=== PATIENT | female | born 1965 | race Caucasian/White ===

== ENCOUNTER 2017-09-17 08:35 | Observation (INO) ==
[2017-09-17] MEDS ORDERED: Isovue-370 500 ML INFUS..BTL IV ONE (08:42)
[2017-09-17] MEDS ORDERED: Ketorolac 30 MG/ML VIAL IVP ONE (08:42)
[2017-09-17] MEDS ORDERED: 0.9 % Sodium Chloride 1,000 ML IVC ONE (08:42)
[2017-09-17] MEDS ORDERED: Ondansetron 4 MG/2 ML VIAL IVP ONE (08:45)
[2017-09-17 08:59] LABS: Basophils # 0.1 K/mcL (0.0-0.2); Basophils % 0.5 %; Eosinophils # 0.3 K/mcL (0.0-0.6); Eosinophils % 3.1 %; Hematocrit 40.9 % (35.3-44.9); Hemoglobin 13.8 g/dL (11.5-15.4); Immature Granulocytes % 0.5 % (0-4); Lymphocytes # 1.7 K/mcL (0.6-4.6); Mean Corpuscular HGB Conc 33.7 g/dL (31.6-35.5); Mean Corpuscular Hemoglobin 31.2 pg (28.0-33.3); Mean Corpuscular Volume 92.3 fL (83.0-100.0); Mean Platelet Volume 8.9 fL (9.4-12.4); Monocytes # 0.6 K/mcL (0.0-1.3); Monocytes % 5.4 %; Neutrophils # 7.5 K/mcL (1.6-8.9); Platelet Count 200 K/mcL (140-400); Red Blood Count 4.43 M/mcL (3.82-4.97); Red Cell Distribution Width 12.1 % (11.5-14.5); Segmented Neutrophils % 73.5 %
[2017-09-17 09:06] LABS: Prothrombin Time 10.8 Seconds (9.4-12.1)
[2017-09-17 09:09] LABS: Activated Partial Thrombo Time 27.5 Seconds (26.0-36.0)
[2017-09-17 09:20] LABS: Troponin I < 0.03 ng/mL (< 0.04)
[2017-09-17 09:21] LABS: Alanine Aminotransferase 17 Units/L (7-52); Albumin 4.1 g/dL (3.5-5.7); Albumin/Globulin Ratio 1.6 (1.1-2.2); Alkaline Phosphatase 89 Units/L (34-104); Amylase 20 Units/L (29-103); Aspartate Amino Transferase 16 Units/L (13-39); BUN/Creatinine Ratio 26 (6-26); Bilirubin,Direct 0.2 mg/dL (0.0-0.2); Bilirubin,Indirect 0.5 mg/dL (0.0-1.2); Bilirubin,Total 0.7 mg/dL (0.3-1.0); Blood Urea Nitrogen 19 mg/dL (6-20); Calcium 9.5 mg/dL (8.6-10.3); Carbon Dioxide 27 mEq/L (23-29); Chloride 108 mEq/L (98-107); Globulin 2.5 g/dL (2.4-3.5); Glucose 166 mg/dL (70-105); Lipase 15 Units/L (11-82); Osmolality,Calculated 296 (280-300); Potassium 3.8 mEq/L (3.5-5.1); Sodium 140 mEq/L (136-145); Total Protein 6.6 g/dL (6.4-8.9); eGFR For African Americans > 60 (> 60); eGFR For Non-African Americans > 60 (> 60)
[2017-09-17 09:26] LABS: Bilirubin,Urine Negative (Negative); Blood,Urine Large (Negative); Clarity,Urine Cloudy (Clear); Glucose,Urine (UA) Normal (Normal); Ketones,Urine Negative (Negative); Leukocyte Esterase,Urine Negative (Negative); Nitrite,Urine Negative (Negative); PH,Urine 6.5 pH Units (5.0-8.0); Protein,Urine 100 mg/dL (Neg-Trace); Specific Gravity,Urine 1.027 (1.010-1.025); Urobilinogen,Urine Normal (Normal)
[2017-09-17 09:27] LABS: Color,Urine Red (Yellow)
--- NOTE | 2017-09-17 09:46 | Emergency Department Note ---
Disposition Clinical Impression: Kidney stone on left side Disposition: Admitted As Inpatient Condition: Good Referrals: Mayito Peters MD [Primary Care Provider] - Forms: ED Satisfaction Letter, Work/School Release Time of Disposition: 11:23 General Adult HPI - General Chief complaint: ED Abdominal Pain Stated complaint: ABD,Vomiting,Vag Bleed Time Seen by Provider: 09/17/17 08:41 Source: patient Limitations: no limitations Nursing Notes Reviewed: Yes Vital Signs Reviewed: Yes - History of Present Illness HPI Narrative: 52 yaer old female presents to the ED with complaints of abdomnila pain simliar to her kidney stones in the past. Ptient states that she follows with Dr. Solis and that she has had a kidney stone about 1 month ago and this mornig when she woek up she had excrusiting left flank pain that radiates to the left groin and is having gloria hematuria. PAtinet sates that she also has been vomitting but without fevers. Patient states that she had a CT scan about 1 month ago and was told that there was not anymore stones in ther kidneys. She called urology and states that she was instructed to come to the ED Pain Scale: 10 - Related Data Home Medications Medication Instructions Recorded Confirmed ALPRAZolam [Xanax 0.5 MG Tablet] 0.5 mg PO BID PRN 04/25/16 04/25/16 Atorvastatin Calcium [Lipitor] 20 mg PO HS 04/25/16 04/25/16 Cholecalciferol (D-3) [Vitamin D] 5,000 unit PO DAILY 04/25/16 04/25/16 D-Methorphan/PE/Acetaminophen 1 each PO Q4H PRN 04/25/16 04/25/16 [Tylenol Cold Max Day Caplet] Levothyroxine Sodium [Levoxyl] 75 mcg PO DAILY 04/25/16 04/25/16 Mirabegron [Myrbetriq] 50 mg PO DAILY 04/25/16 04/25/16 Omeprazole [PriLOSEC] 40 mg PO HS 04/25/16 04/25/16 Pramipexole [Mirapex] 0.25 mg PO HS 04/25/16 04/25/16 Previous Rx's Medication Instructions Recorded Ondansetron [Zofran] 8 mg PO Q8HR #10 tablet 04/25/16 Oxycodone HCl/Acetaminophen 1 each PO Q4-6H PRN #42 tablet 04/25/16 [Percocet 5-325 mg Tablet] Allergies Allergy/AdvReac Type Severity Reaction Status Date / Time Penicillins [PCN] Allergy Hives Verified 04/25/16 11:28 prednisone Allergy See Verified 04/25/16 11:28 Comments Constitutional: Denies: fever, chills, weakness, weight change Eyes: Denies: eye pain, eye discharge, vision change ENT ED: Denies: ear pain, throat pain, dental pain, hearing loss, epistaxis, congestion, dysphagia Cardiovascular: Denies: chest pain, palpitations, dyspnea on exertion, edema, syncope Respiratory: Denies: cough, dyspnea, wheezes, hemoptysis, stridor Gastrointestinal: Reports: abdominal pain, nausea, vomiting. Denies: diarrhea, constipation, hematemesis, melena, hematochezia Genitourinary: Reports: hematuria. Denies: dysuria, frequency, discharge Musculoskeletal: Denies: back pain, neck pain, arthralgia, myalgia Integumentary: Denies: rash, abrasion, lesions Neurological: Denies: headache, weakness, numbness, paresthesias, confusion, abnormal gait, vertigo Psychiatric: Denies: anxiety, depression, suicidal thoughts, homicidal thoughts , auditory hallucinations, visual hallucinations Endocrine: Denies: fatigue Hematological/Lymphatic: Denies: easy bleeding, easy bruising Allergic/Immunologic: Denies: facial swelling, urticaria Past Medical History - Past Medical History Medical history: Reports: GERD, kidney stones, liver disease Surgical history: Reports: cholecystectomy, herniorrhaphy Psychiatric history: Reports: no psych history - Social History Smoking Status: Current every day smoker Smokeless Tobacco Status: No Alcohol use: Reports: occasionally Drug use: Reports: none Physical Exam - General Limitations: no limitations General appearance: alert, in no apparent distress - Head Head exam: atraumatic, normocephalic, normal inspection - Eye Eye exam: Present: normal appearance, PERRL, EOMI - Expanded Eye Exam Pupils: Bilateral: reactive - ENT ENT exam: normal exam, normal oropharynx, mucous membranes moist - Expanded ENT Exam External ear exam: Present: normal external inspection Mouth exam: Present: normal external inspection Teeth exam: Present: normal inspection Throat exam: Present: normal inspection - Neck Neck exam: Present: normal inspection, full ROM, trachea midline - Chest Chest inspection: Present: normal inspection, symmetric chest wall rise - Respiratory Respiratory exam: Present: normal lung sounds bilaterally - Cardiovascular Cardiovascular exam: Present: regular rate, normal rhythm, normal heart sounds - Abdominal Exam Abdominal exam: Present: soft, tenderness, normal bowel sounds. Absent: Non- Tender, distention, guarding, rebound, rigidity, psoas sign, obturator sign, heel tap sign, Scanlon's sign, Rovsing's sign, tenderness at McBurney's Point Abdominal tenderness: Present: LUQ, LLQ - Extremities Exam Extremities exam: Present: normal inspection, full ROM. Absent: tenderness, pedal edema - Expanded Upper Extremity Exam Shoulder exam: Present: normal inspection, full ROM Arm exam: Present: normal inspection, full ROM Elbow exam: Present: normal inspection, full ROM Forearm/Wrist exam: Present: normal inspection, full ROM Hand exam: Present: normal inspection, full ROM Vascular exam: Normal: capillary refill, radial pulse - Expanded Lower Extremity Exam Hip/Pelvis exam: Present: normal inspection, full ROM Upper leg exam: Present: normal inspection, full ROM Knee exam: Present: normal inspection, full ROM Lower leg exam: Present: normal inspection, full ROM Ankle exam: Present: normal inspection, full ROM Foot/toe exam: Present: normal inspection, full ROM Neurovascular/Tendon exam: Absent: motor deficit, sensory deficit, tendon deficit - Back Exam Back exam: Present: normal inspection, full ROM, CVA tenderness (L) - Neurological Exam Neurological exam: Present: alert, oriented X3 - Expanded Neurological Exam Patient oriented to: Present: person, place, time Coma Scale Eye Opening: Spontaneous Coma Scale Motor Response: Obeys Commands Coma Scale Verbal Response: Oriented Coma Scale Total: 15 - Psychiatric Psychiatric exam: Present: normal affect, normal mood - Skin Skin exam: Present: warm, dry, intact, normal color Course Course Narrative: will do an abdominla pain workup and CT scan with IV meds for relief. - Consultations Consultation #1: discussed case with Dr. Amor and we will accept josiah to his service. Time: 11:23 Vital Signs Temperature 97.3 F L 09/17/17 08:36 Pulse Rate 75 09/17/17 08:36 Respiratory Rate 18 09/17/17 08:36 Blood Pressure 122/83 09/17/17 08:36 O2 Sat by Pulse Oximetry 98 09/17/17 08:36 Temperature 97.3 F L 09/17/17 08:54 Pulse Rate 88 09/17/17 10:02 Respiratory Rate 18 09/17/17 10:02 Blood Pressure 140/76 09/17/17 10:02 O2 Sat by Pulse Oximetry 98 09/17/17 10:02 Oxygen Delivery Oxygen Delivery Room Air Medical Decision Making - Medical Records Medical records reviewed: Yes I reviewed the patient's medical records. - Lab Data Lab results reviewed: Yes I reviewed the patient's lab results. Result diagrams: 09/17/17 08:50 09/17/17 08:50 Lab Results 09/17/17 09/17/17 09/17/17 Range/Units 08:50 08:50 08:50 WBC 10.2 (4.3-11.1) K/mcL RBC 4.43 (3.82-4.97) M/mcL Hgb 13.8 (11.5-15.4) g/dL Hct 40.9 (35.3-44.9) % MCV 92.3 (83.0-100.0) fL MCH 31.2 (28.0-33.3) pg MCHC 33.7 (31.6-35.5) g/dL RDW 12.1 (11.5-14.5) % Plt Count 200 (140-400) K/mcL MPV 8.9 L (9.4-12.4) fL Immature Gran % 0.5 (0-4) % Seg Neutrophils % 73.5 % Lymphocytes % 17.0 % Monocytes % 5.4 % Eosinophils % 3.1 % Basophils % 0.5 % Neutrophils # 7.5 (1.6-8.9) K/mcL Lymphocytes # 1.7 (0.6-4.6) K/mcL Monocytes # 0.6 (0.0-1.3) K/mcL Eosinophils # 0.3 (0.0-0.6) K/mcL Basophils # 0.1 (0.0-0.2) K/mcL PT 10.8 (9.4-12.1) Seconds INR 1.0 APTT 27.5 (26.0-36.0) Seconds Sodium 140 (136-145) mEq/L Potassium 3.8 (3.5-5.1) mEq/L Chloride 108 H (98-107) mEq/L Carbon Dioxide 27 (23-29) mEq/L BUN 19 (6-20) mg/dL Creatinine 0.73 (0.60-1.20) mg/dL Est GFR ( Amer) > 60 (> 60) Est GFR (Non-Af Amer) > 60 (> 60) BUN/Creatinine Ratio 26 (6-26) Glucose 166 H (70-105) mg/dL Calculated Osmolality 296 (280-300) Lactic Acid (0.5-2.2) mmol/L Calcium 9.5 (8.6-10.3) mg/dL Total Bilirubin 0.7 (0.3-1.0) mg/dL Direct Bilirubin 0.2 (0.0-0.2) mg/dL Indirect Bilirubin 0.5 (0.0-1.2) mg/dL AST 16 (13-39) Units/L ALT 17 (7-52) Units/L Alkaline Phosphatase 89 (34-104) Units/L Troponin I < 0.03 (< 0.04) ng/mL Serum Total Protein 6.6 (6.4-8.9) g/dL Albumin 4.1 (3.5-5.7) g/dL Globulin 2.5 (2.4-3.5) g/dL Albumin/Globulin Ratio 1.6 (1.1-2.2) Amylase 20 L (29-103) Units/L Lipase 15 (11-82) Units/L Ur Specimen Adequacy Urine Color (Yellow) Urine Clarity (Clear) Urine pH (5.0-8.0) pH Units Ur Specific [place] (1.010-1.025) Urine Protein (Neg-Trace) mg/dL Urine Glucose (UA) (Normal) mg/dL Urine Ketones (Negative) mg/dL Urine Blood (Negative) Urine Nitrite (Negative) Urine Bilirubin (Negative) Urine Urobilinogen (Normal) mg/dL Ur Leukocyte Esterase (Negative) Ur Culture Indicated? (NO) 09/17/17 09/17/17 Range/Units 08:50 08:59 WBC (4.3-11.1) K/mcL RBC (3.82-4.97) M/mcL Hgb (11.5-15.4) g/dL Hct (35.3-44.9) % MCV (83.0-100.0) fL MCH (28.0-33.3) pg MCHC (31.6-35.5) g/dL RDW (11.5-14.5) % Plt Count (140-400) K/mcL MPV (9.4-12.4) fL Immature Gran % (0-4) % Seg Neutrophils % % Lymphocytes % % Monocytes % % Eosinophils % % Basophils % % Neutrophils # (1.6-8.9) K/mcL Lymphocytes # (0.6-4.6) K/mcL Monocytes # (0.0-1.3) K/mcL Eosinophils # (0.0-0.6) K/mcL Basophils # (0.0-0.2) K/mcL PT (9.4-12.1) Seconds INR APTT (26.0-36.0) Seconds Sodium (136-145) mEq/L Potassium (3.5-5.1) mEq/L Chloride (98-107) mEq/L Carbon Dioxide (23-29) mEq/L BUN (6-20) mg/dL Creatinine (0.60-1.20) mg/dL Est GFR ( Amer) (> 60) Est GFR (Non-Af Amer) (> 60) BUN/Creatinine Ratio (6-26) Glucose (70-105) mg/dL Calculated Osmolality (280-300) Lactic Acid 1.1 (0.5-2.2) mmol/L Calcium (8.6-10.3) mg/dL Total Bilirubin (0.3-1.0) mg/dL Direct Bilirubin (0.0-0.2) mg/dL Indirect Bilirubin (0.0-1.2) mg/dL AST (13-39) Units/L ALT (7-52) Units/L Alkaline Phosphatase (34-104) Units/L Troponin I (< 0.04) ng/mL Serum Total Protein (6.4-8.9) g/dL Albumin (3.5-5.7) g/dL Globulin (2.4-3.5) g/dL Albumin/Globulin Ratio (1.1-2.2) Amylase (29-103) Units/L Lipase (11-82) Units/L Ur Specimen Adequacy See below A Urine Color Red A (Yellow) Urine Clarity Cloudy A (Clear) Urine pH 6.5 (5.0-8.0) pH Units Ur Specific [place] 1.027 H (1.010-1.025) Urine Protein 100 H (Neg-Trace) mg/dL Urine Glucose (UA) Normal (Normal) mg/dL Urine Ketones Negative (Negative) mg/dL Urine Blood Large H (Negative) Urine Nitrite Negative (Negative) Urine Bilirubin Negative (Negative) Urine Urobilinogen Normal (Normal) mg/dL Ur Leukocyte Esterase Negative (Negative) Ur Culture Indicated? NO (NO) - Radiology Data Radiology results reviewed: Yes I reviewed the patient's radiology results. - EKG Data EKG #1 EKG attestation: Yes I reviewed and interpreted this EKG. EKG results narrative: NSR with rate of 71. NO STEMI. normla intervals. no old ekg. 0902
[2017-09-17] MEDS ORDERED: OXYCODONE Oral CONC 10 MG/0.5 ML ORAL.SYG SL PRN ×2 (12:27→19:06)
[2017-09-17] MEDS ORDERED: *HR* HYDROcodone/Acet 5/325 mg TABLET PO PRN ×2 (12:27→19:06)
[2017-09-17] MEDS ORDERED: Ketorolac 15 MG/ML VIAL IVP PRN ×2 (12:27→19:06)
[2017-09-17] MEDS ORDERED: Naloxone 0.4 MG/ML INJ IVP PRN ×2 (12:27→19:06)
[2017-09-17] MEDS ORDERED: 0.9 % Sodium Chloride 1,000 ML IVC SCH ×2 (12:30→19:06)
--- NOTE | 2017-09-17 12:32 | Urology - Consult Note ---
<Beatris Jefferson N - Last Filed: 09/17/17 12:30> Date of Encounter: 09/17/17 Time of Encounter: 11:50 - Assessment and Plan (1) Kidney stone on left side Current Visit: Yes Status: Acute Urology CN:HPI Consult date: 09/17/17 History of present illness: Patient reports to ED with left flank pain and gross hematuria. Patient has recurrent history of nephrolithiasis and has been treated with basket retrieval x [address] Solis. Patient denies fever, dysuria, chest pain, dyspnea or calf pain. Past Med Surg Social Fam HX - Past Medical History Medical history: GERD, kidney stones, liver disease Additional medical history: Graves disease, Psychiatric history: no psych history - Past Surgical History Surgical History: cholecystectomy, herniorrhaphy Additional surgical history: tubal, kidney stones - Social History Smoking Status: Current every day smoker Smokeless Tobacco Status: No Alcohol use: occasionally Drug use: none Medications and Allergies ALPRAZolam [Xanax 0.5 MG Tablet] 0.5 mg PO BID PRN 04/25/16 [History] Atorvastatin Calcium [Lipitor] 20 mg PO HS 04/25/16 [History] Cholecalciferol (D-3) [Vitamin D] 5,000 unit PO DAILY 04/25/16 [History] Mirabegron [Myrbetriq] 50 mg PO DAILY 04/25/16 [History] Omeprazole [PriLOSEC] 40 mg PO HS 04/25/16 [History] Pramipexole [Mirapex] 0.25 mg PO HS 04/25/16 [History] Levothyroxine Sodium [Levoxyl] 100 mcg PO QAM 09/17/17 [History] Meloxicam [Meloxicam] 15 mg PO DAILY 09/17/17 [History] 3 Allergy/AdvReac Type Severity Reaction Status Date / Time Penicillins [PCN] Allergy Hives Verified 09/17/17 11:58 prednisone Allergy See Verified 09/17/17 11:58 Comments Review of Systems - Constitutional as per HPI - Cardiovascular as per HPI, no chest pain, no dyspnea, no leg edema - Respiratory as per HPI, no dyspnea - Gastrointestinal nausea, no abdominal pain, no change in bowel habits, no vomiting - Genitourinary Genitourinary: flank pain, pelvic pain, urinary frequency, urinary hesitancy, urinary urgency, no abnormal vaginal bleeding, no change in urinary stream, no difficulty urinating, no dysuria, no genital lesions, no urinary incontinence Menstruation: post hysterectomy - Musculoskeletal back pain, no muscle weakness - Integumentary no lesions, no rash - Neurological no confusion, no syncope Exam Initial Vital Signs Temp Pulse Resp BP Pulse Ox 97.3 F L 75 18 122/83 98 09/17/17 08:36 09/17/17 08:36 09/17/17 08:36 09/17/17 08:36 09/17/17 08:36 - General physical appearance Present: well developed, no distress, no pain - Eyes Present: PERRL, normal ocular movement - Neck Present: no masses, trachea midline - Respiratory Present: normal respiratory effort - Abdomen Abdomen: Present: soft, non tender. Absent: guarding, distended - Integumentary Present: no rash, no growths, no abnormal pigmentation (+Left CVAT) - Neurologic Present: normal coordination. Absent: disoriented, confused Urology Results - Labs 09/17/17 08:50 09/17/17 08:50 Abnormal lab results MPV 8.9 fL (9.4-12.4) L 09/17/17 08:50 Chloride 108 mEq/L (98-107) H 09/17/17 08:50 Glucose 166 mg/dL (70-105) H 09/17/17 08:50 Amylase 20 Units/L (29-103) L 09/17/17 08:50 Ur Specimen Adequacy See below A 09/17/17 08:59 Urine Color Red (Yellow) A 09/17/17 08:59 Urine Clarity Cloudy (Clear) A 09/17/17 08:59 Ur Specific [place] 1.027 (1.010-1.025) H 09/17/17 08:59 Urine Protein 100 mg/dL (Neg-Trace) H 09/17/17 08:59 Urine Blood Large (Negative) H 09/17/17 08:59 All other labs normal. - Imaging CT scan - abdomen: report reviewed, image reviewed CT scan - pelvis: report reviewed, image reviewed (Reviewed with Dr. Amor) Consult Discharge Plan - Plan Additional Instructions: Discussed CT findings with patient and her . Discussed surgical intervention options. Patient agrees to proceed with cystoscopy, retrograde pyelogram, and ureteral stent placement (left). Patient verbalizes surgical risks and benefits. Consent signed. Dr. Amor present and confirmed plan. Referrals: Mayito Peters MD [Primary Care Provider] - Noah Amor MD [Partnered Physician] - <Noah Amor - Last Filed: 09/17/17 12:39> Date of Encounter: 09/17/17 - Assessment and Plan (1) Ureteral calculi Current Visit: Yes Status: Acute Assessment and plan: plan to proceed with attempts at ureteroscopic stone extraction today. She has a history of ureteral injury in the past. She understands that if I am unable to advance the ureteroscope to the stone without resistance I will likely place a stent and remove the stone in a staged fashion. I do not want to place the patient at increased risk for ureteral perforation or avulsion. We discussed the risks of the procedure which includes injury to her urinary tract, infection , stent discomfort, reaction to contrast. We also discussed attempted trial of passage. She wishes to proceed with intervention today. Exam Initial Vital Signs Temp Pulse Resp BP Pulse Ox 97.3 F L 75 18 122/83 98 09/17/17 08:36 09/17/17 08:36 09/17/17 08:36 09/17/17 08:36 09/17/17 08:36 Urology Results - Labs 09/17/17 08:50 09/17/17 08:50 Abnormal lab results MPV 8.9 fL (9.4-12.4) L 09/17/17 08:50 Chloride 108 mEq/L (98-107) H 09/17/17 08:50 Glucose 166 mg/dL (70-105) H 09/17/17 08:50 Amylase 20 Units/L (29-103) L 09/17/17 08:50 Ur Specimen Adequacy See below A 09/17/17 08:59 Urine Color Red (Yellow) A 09/17/17 08:59 Urine Clarity Cloudy (Clear) A 09/17/17 08:59 Ur Specific [place] 1.027 (1.010-1.025) H 09/17/17 08:59 Urine Protein 100 mg/dL (Neg-Trace) H 09/17/17 08:59 Urine Blood Large (Negative) H 09/17/17 08:59 All other labs normal.
--- NOTE | 2017-09-17 14:56 | Electrocardiograph Report ---
[email or web address] Test Date: 2017-09-17 Pat Name: Beata Oliveira Department: 103 Room: 3A46 Gender: F [facility] Director: : [id number] Requested By: Raquel Marroquin Order Number: [id number] Reading MD: Casey Mahmood Measurements Intervals [place] Rate: 71 P: 25 TX: 140 QRS: -5 QRSD: 107 T: 11 QT: 407 QTc: 429 Interpretive Statements SINUS RHYTHM MODERATE VOLTAGE CRITERIA FOR LVH, CONSIDER NORMAL VARIANT [MEETS CRITERIA IN ONE OF: R(aVL), S(V1), R(V5), R(V5/V6)+S(V1)] Electronically Signed On 09-17-2017 14:55:00 EDT by Casey Mahmood
[2017-09-17] MEDS ORDERED: *HR* FentaNYL (PF) 100 MCG/2 ML VIAL ONE (16:02)
[2017-09-17] MEDS ORDERED: Dexamethasone 4 MG/ML VIAL ONE (16:02)
[2017-09-17] MEDS ORDERED: *HR* Propofol 200 MG/20 ML VIAL IVP ONE ×2 (16:02→16:38)
[2017-09-17] MEDS ORDERED: Ondansetron 4 MG/2 ML VIAL ONE (16:02)
[2017-09-17] MEDS ORDERED: Lidocaine -MPF 2% 2 ML VIAL ONE (16:02)
--- NOTE | 2017-09-17 16:11 | Anesthesia Evaluation PreOp ---
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 Significant HX Other Medical History: Thyroid, GERD Anesthesia History: No Prior Anesthetic Complications, Past Anesthesia Alcohol Use: occasionally Drug use: none Medications and Allergies ALPRAZolam [Xanax 0.5 MG Tablet] 0.5 mg PO BID PRN 04/25/16 [History] Atorvastatin Calcium [Lipitor] 20 mg PO HS 04/25/16 [History] Cholecalciferol (D-3) [Vitamin D] 5,000 unit PO DAILY 04/25/16 [History] Mirabegron [Myrbetriq] 50 mg PO DAILY 04/25/16 [History] Omeprazole [PriLOSEC] 40 mg PO HS 04/25/16 [History] Pramipexole [Mirapex] 0.25 mg PO HS 04/25/16 [History] Levothyroxine Sodium [Levoxyl] 100 mcg PO QAM 09/17/17 [History] Meloxicam [Meloxicam] 15 mg PO DAILY 09/17/17 [History] 3 Allergy/AdvReac Type Severity Reaction Status Date / Time Penicillins [PCN] Allergy Hives Verified 09/17/17 11:58 prednisone Allergy See Verified 09/17/17 11:58 Comments - Meds/Allergy Pre-op Review Medications Reviewed: Yes Allergies Reviewed: Yes Anesthesia Results - Labs 09/17/17 08:50 09/17/17 08:50 Anesthesia Exam O2 Sat Height 1.6 m Weight 81.3 kg BMI 32 Vital Signs Temp Pulse Resp BP Pulse Ox 97.3 F L 75 18 122/83 98 09/17/17 08:36 09/17/17 08:36 09/17/17 08:36 09/17/17 08:36 09/17/17 08:36 NPO (# of Hours): Solids 8, Ice chips 2 hours - HEENT Mallampati: I Teeth: Poor dentition Oral Opening: Greater than 3 - GOVERNMENT SALES MANAGER LOC: Oriented - Cardiac Rhythm: Regular - Pulmonary Breath Sounds: bilateral Clear Anesthesia Assess/Plan ASA Score: 2 Modified Arin Scale for Level of Consciousness: Cooperative, oriented, and tranquil Monitoring Plan: Standard Monitors Recovery Plan: PACU
[2017-09-17] MEDS ORDERED: Isovue-300 50 ML VIAL IVP ONE (16:15)
[2017-09-17] MEDS ORDERED: Levofloxacin 500 MG/100 ML 500 MG/100 ML BAG IVPB ONE ×2 (16:24→19:06)
[2017-09-17] MEDS ORDERED: *HR* Meperidine 25 MG/ML SYRINGE IVP PRN ×2 (16:49→19:06)
[2017-09-17] MEDS ORDERED: *HR* OxyCODONE Immed Rel 5 MG TABLET PO PRN ×2 (16:49→19:06)
[2017-09-17] MEDS ORDERED: *HR* Promethazine 25 MG/ML VIAL IVP PRN ×2 (16:49→19:06)
--- NOTE | 2017-09-17 17:24 | Operative Note ---
Date of procedure: 09/17/17 Pre-op diagnosis: left proximal ureteral stone Post-op diagnosis: same Procedure: Left ureteroscopic stone extraction using holmium laser Left retrograde pyelogram Left ureteral stent placement Anesthesia: GETA Surgeon: Noah Amor Was there an child care assistant present: No Estimated blood loss (cc): 0 Specimen: Left ureteral stone Condition: stable Disposition: PACU Procedure in Detail: PROCEDURE IN DETAIL: Patient was taken back to the operating room, positioned supine on the operating table. Anesthesia was applied without complication. They were moved into dorsal lithotomy. Careful attention was maintained to cushion all pressure points for patient's safety. They were prepped and draped in sterile fashion. Time-out was performed with the proper patient and procedure. A 21-Lithuanian rigid cystoscope was inserted into the bladder without difficulty. Systematic examination of bladder revealed no abnormalities. The ureteral orifice was cannulated using a 5-Lithuanian ureteral Catheter and a retrograde pyelogram was performed using Isovue. A filling defect was identified which corresponded to the stone in the proximal left ureter. . At that point, a zip wire was placed through the 5-Lithuanian and confirmed in the renal pelvis with fluoroscopy. An 8-10 dilator was then placed over the zip wire to passively dilate the ureteral orifice. A flexible ureteroscope was carefully inserted over the zip wire up to the level of the stone.. At that point, the stone was encountered and I felt that it required fragmentation for safe extraction. A 200 micron holmium laser fiber on a setting of 8 and 800 was used to fragment the stone into multiple pieces. The fragments were individually basketed out of the ureter with a 1.9 tipless basket. All stone in the ureter was removed. I reinserted the ureteroscope and was able to extract 2 additional larger stones from her kidney. It came to the procedure I placed A 4.8 x 26 ureteral stent was placed over the zip wire under fluoroscopy without complication. The bladder was drained along with the stone fragments. They were collected and sent for stone analysis. No dangle string was left attached to the stent.
--- NOTE | 2017-09-17 17:28 | Discharge Summary ---
Orders not resulted at time of discharge: Pending orders 09/17/17 XR retrograde pyelogram [XR] Routine Date of Encounter: 09/17/17 Time of Encounter: 17:28 - Discharge Diagnosis (1) Ureteral calculi Priority: Primary Status: Resolved - Hospital Course Hospital course: Ms. Oliveira is a 52 year old female s/p stone extraction. DC when pain controlled - Time Spent with Patient Total time spent providing and/or coordinating discharge services: Less than 30 minutes Labs on day of discharge: Labs from last 24 hours 09/17/17 14:15 Urine Test Negative - Discharge Medications Prescriptions: HYDROcodone/Acet 5/325 mg [[place] 5-325 mg] 1 tab PO Q4HR PRN 5 Days #15 tablet PRN Reason: Mild To Moderate Pain levoFLOXacin [Levaquin] 500 mg PO DAILY #3 tablet Home Medications: ALPRAZolam [Xanax 0.5 MG Tablet] 0.5 mg PO BID PRN 04/25/16 [History] Atorvastatin Calcium [Lipitor] 20 mg PO HS 04/25/16 [History] Cholecalciferol (D-3) [Vitamin D] 5,000 unit PO DAILY 04/25/16 [History] Mirabegron [Myrbetriq] 50 mg PO DAILY 04/25/16 [History] Omeprazole [PriLOSEC] 40 mg PO HS 04/25/16 [History] Pramipexole [Mirapex] 0.25 mg PO HS 04/25/16 [History] HYDROcodone/Acet 5/325 mg [[place] 5-325 mg] 1 tab PO Q4HR PRN 5 Days #15 tablet 09/17/17 [Rx] Levothyroxine Sodium [Levoxyl] 100 mcg PO QAM 09/17/17 [History] Meloxicam 15 mg PO DAILY 09/17/17 [History] levoFLOXacin [Levaquin] 500 mg PO DAILY #3 tablet 09/17/17 [Rx] Allergies/Adverse Reactions: 3 Allergy/AdvReac Type Severity Reaction Status Date / Time Penicillins [PCN] Allergy Hives Verified 09/17/17 11:58 prednisone Allergy See Verified 09/17/17 11:58 Comments Date of admission: 09/17/17 12:00 Primary care physician: Mayito Peters MD Discharging clinician: Noah Amor Anticipated date of discharge: 09/17/17 Exam Initial Vital Signs Temp Pulse Resp BP Pulse Ox 97.3 F L 75 18 122/83 98 09/17/17 08:36 09/17/17 08:36 09/17/17 08:36 09/17/17 08:36 09/17/17 08:36 - General physical appearance Present: no distress - Patient Status Disposition: Home, Self-Care Condition: Good Functional capacity at discharge: independent ambulation Overall status at discharge: patient is progressing back to baseline - Discharge Instructions Follow Up With: Mayito Peters MD [Primary Care Provider] - Noah Amor MD [Partnered Physician] - (my office will call to schedule cystoscopy and stent removal) Additional Instructions: Expect stent discomfort including urgency, frequency, burning, blood in the urine Stent will be removed in the office within 1-2 weeks Call of significant fever over 101 degrees OK to take AZO OTC for dysuria - Diet and Activity Activity: other Diet: advance to your usual diet - VTE Documentation of Mechanical Device: Intermittent pneumatic compression device
--- NOTE | 2017-09-17 18:07 | Anesthesia Evaluation Post Op ---
Date of Encounter: 09/17/17 Time of Encounter: 18:02 Notes: Patient's vital signs have been reviewed. Patient is stable postoperatively and has adequately recovered from anesthesia. Patient is determined to have stable airway patency and respiratory function including respiratory rate and oxygen saturation. Patient has a stable heart rate, blood pressure and adequate hydration. Patients mental status is acceptable. Patients temperature is appropriate. Pain and nausea are adequately controlled. - Discharge PostOp Status: Transfer Patient to floor
[2017-09-17] MEDS ORDERED: *HR* Nalbuphine 20 MG/ML AMPUL IVP ONE ×2 (18:09→18:30)
[2017-09-17] MEDS ORDERED: *HR* Nalbuphine 20 MG/ML AMPUL ONE (18:17)
[2017-09-17] MEDS ORDERED: ALPRAZolam 0.5 MG TABLET PO PRN (19:06)
[2017-09-17 20:15] VITALS: BP 124/72
[2017-09-18] MEDS ORDERED: levoFLOXacin 500 MG TABLET PO SCH ×2 (09:00)
== END 2017-09-17 21:35 | disposition home or self-care (01) ==
LOC: EMEROO 08:35 → 3ANU 08:35
PROVIDERS: ADMIT Urology; ATTEND Urology